=== PATIENT | female | born 1995 | race Caucasian/White ===

== ENCOUNTER 2017-01-23 23:30 | Emergency (ER) | payer OTHER ==
[2017-01-24 05:08] LABS: HEMOGLOBIN 14.4 gm/dl (12.3-15.3); RED BLOOD COUNT 4.99 M/UL (4.00-5.10); WHITE BLOOD COUNT 5.9 K/UL (4.5-11.0)
[2017-01-24 05:27] LABS: BUN/CREATININE RATIO 7 (0-10)
== END 2017-01-24 06:33 | disposition home or self-care (01) ==
LOC: ER1 23:30
PROVIDERS: Family Medicine
DX: J06.9 Acute upper respiratory infection, unspecified (principal); I10 Essential (primary) hypertension; E03.9 Hypothyroidism, unspecified; K21.9 Gastro-esophageal reflux disease without esophagitis; Z88.1 Allergy status to other antibiotic agents; Z79.899 Other long term (current) drug therapy
CPT/HCPCS: 36415; 71020; 80053; 84703; 85025; 87040; 87081; 87880; 93005; 96374; 99284; J1885; J2405; J7030

== ENCOUNTER 2017-03-23 22:55 | Emergency (ER) | payer OTHER | END 2017-03-24 02:05 | disposition left against medical advice (07) | LOC: ER1 22:55 | DX: Z53.8 Procedure and treatment not carried out for other reasons (principal) ==

== ENCOUNTER 2021-09-20 18:26 | Outpatient (CLI) | payer OTHER | END 2021-09-20 22:30 | disposition home or self-care (01) | LOC: GENOP 18:26 | DX: O16.3 Unspecified maternal hypertension, third trimester (principal); Z3A.32 32 weeks gestation of pregnancy | CPT/HCPCS: 81001; G0463 ==

== ENCOUNTER 2021-10-26 16:14 | Inpatient (IN) | payer OTHER ==
[~2021-10-26] VITALS: Ht 160 cm; Wt 127.9 kg
[2021-10-26 16:45] LABS: HEMOGLOBIN 14.2 gm/dl (12.3-15.3); RED BLOOD COUNT 4.33 M/UL (4.00-5.10); WHITE BLOOD COUNT 12.7 K/UL (4.5-11.0)
[2021-10-26] MEDS ORDERED: TRANDATE 200 M200 MG PO (16:45)
[2021-10-26] MEDS ORDERED: SYNTHROID50 MCG PO (16:45)
[2021-10-26] MEDS ORDERED: PRENATAL VITAM1 EAC3 PO (16:46)
[2021-10-28] MEDS ORDERED: DOCUSATE SODIU250 MG PO (00:48)
[2021-10-28] MEDS ORDERED: HYDROCODONE-AC1 EACH PO (00:48)
[2021-10-28] MEDS ORDERED: IBUPROFEN600 MG PO (00:48)
[2021-10-28] MEDS ORDERED: FEROSUL325 MG PO (00:48)
[2021-10-29 06:34] LABS: HEMOGLOBIN 10.5 gm/dl (12.3-15.3)
== END 2021-10-30 12:12 | disposition home or self-care (01) | DRG 788 ==
LOC: GENOP 16:14 → OB 16:26
PROVIDERS: Obstetrics & Gynecology; ADMIT Obstetrics & Gynecology
PROC: 10907ZC Drainage of Amniotic Fluid, Therapeutic from Products of Conception, Via Natural or Artificial Opening (ICD-10-PCS; principal; 2021-10-28)
PROC: 10D00Z1 Extraction of Products of Conception, Low, Open Approach (ICD-10-PCS; 2021-10-28)
PROC: 0UB90ZZ Excision of Uterus, Open Approach (ICD-10-PCS; 2021-10-28)
PROC: 3E033VJ Introduction of Other Hormone into Peripheral Vein, Percutaneous Approach (ICD-10-PCS; 2021-10-28)
PROC: 10H07YZ Insertion of Other Device into Products of Conception, Via Natural or Artificial Opening (ICD-10-PCS; 2021-10-28)
DX: O99.214 Obesity complicating childbirth (principal); Z37.0 Single live birth; E66.9 Obesity, unspecified; O10.92 Unspecified pre-existing hypertension complicating childbirth; O99.284 Endocrine, nutritional and metabolic diseases complicating childbirth; O62.1 Secondary uterine inertia; O34.13 Maternal care for benign tumor of corpus uteri, third trimester; R20.0 Anesthesia of skin; D25.9 Leiomyoma of uterus, unspecified; E03.9 Hypothyroidism, unspecified; Z3A.38 38 weeks gestation of pregnancy; Z98.890 Other specified postprocedural states; Z88.8 Allergy status to other drugs, medicaments and biological substances
CPT/HCPCS: 36415; 81001; 82800; 85014; 85018; 85025; 90715; 97161; C9113; J0690; J1885; J2001; J2274; J2370; J2405; J2590; J7120; J7121

== ENCOUNTER 2022-02-07 21:31 | Emergency (ER) | payer OTHER ==
[~2022-02-07 21:31] MED LIST: DOCUSATE SODIU250 MG PO; FEROSUL325 MG PO; HYDROCODONE-AC1 EACH PO; IBUPROFEN600 MG PO; PRENATAL VITAM1 EAC3 PO; SYNTHROID50 MCG PO; TRANDATE 200 M200 MG PO
[2022-02-07 22:13] LABS: HEMOGLOBIN 14.2 gm/dl (12.3-15.3); RED BLOOD COUNT 4.71 M/UL (4.00-5.10); WHITE BLOOD COUNT 9.7 K/UL (4.5-11.0)
[2022-02-07 22:33] LABS: BUN/CREATININE RATIO 17 (0-10)
== END 2022-02-08 00:41 | disposition home or self-care (01) ==
LOC: ER1 21:31
DX: O99.891 Other specified diseases and conditions complicating pregnancy (principal); R07.9 Chest pain, unspecified; I10 Essential (primary) hypertension; Z3A.01 Less than 8 weeks gestation of pregnancy
CPT/HCPCS: 80053; 81001; 82550; 82553; 84484; 84702; 85025; 87086; 93005; 99283

== ENCOUNTER 2022-07-21 03:32 | Emergency (ER) | payer OTHER | END 2022-07-21 04:50 | disposition home or self-care (01) | LOC: ER1 03:32 | DX: M25.531 Pain in right wrist (principal); I10 Essential (primary) hypertension; E03.9 Hypothyroidism, unspecified; Z88.1 Allergy status to other antibiotic agents | CPT/HCPCS: 29125; 99283 ==